=== PATIENT | male | born 1935 | race Caucasian/White ===

== ENCOUNTER 2021-10-26 18:01 | Emergency (ER) | payer OTHER, MEDICARE, SELFPAY ==
[2021-10-26 18:37] VITALS: BP 107/76; PULSE 88; RESP 16; TEMP 36.4; O2SAT 95; BMI 33.7
--- NOTE | 2021-10-26 18:44 | XRR_ITS ---
PROCEDURE INFORMATION: Exam: XR Abdomen Exam date and time: 10/26/2021 7:30 PM Age: 86 years old Clinical indication: Constipation; Additional info: Constipation, no bm for 4 days TECHNIQUE: Imaging protocol: XR of the abdomen. Views: Frontal supine view of the abdomen. 1 View. COMPARISON: No relevant prior studies available. FINDINGS: Gastrointestinal tract: No ileus or obstruction. There is a large amount of stool in the rectum and small to moderate amount of stool in the transverse and proximal descending colon. Bones/joints: No acute abnormality. Severe degenerative changes in the spine and right hip are noted. Other findings: There are multiple hyperdense radiation seeds projected over the prostate gland. XR/XR KUB [id number] IMPRESSION: No bowel obstruction or ileus. There is constipation with a large amount of stool in the rectum. Less extensive stool in the transverse and descending colon.
--- NOTE | 2021-10-27 15:20 | ED_ITS ---
HPI - General Adult General: Chief complaint: General Medical Stated complaint: Constipation Time Seen by Provider: 10/26/21 21:34 Source: patient History of Present Illness: Pt presenting with inability to have a BM for the last 3-4 days. Was seen as outpt and given Mg Citrate which he has taken with minimal results. He has had small amounts of liquid stool only. Mild diffuse belly pain, no vomiting, no fever. States it feels like it is right there but just won't come out. Onset (ago): day(s) Location: abdomen Radiation: non-radiation Severity: mild Quality: aching Pain Consistency: constant Relieving factors: none Exacerbating factors: none Associated symptoms: Reports decreased appetite; Deny chest pain, confusion, cough, fevers/chills, short of breath, vomiting or weakness Review of Systems Card: Denies: chest pain GI: Denies: vomiting Neuro: Denies: confusion PFSH ED PFSH: Social History Smoking and tobacco status: former smoker Physical Exam Const: COMMON NORMALS: no acute distress GENERAL APPEARANCE: cooperative and frail appearing HENMT: COMMON NORMALS: normocephalic HEAD & SCALP: normocephalic FACE & SINUS: normal facial exam and face symmetric Eye: COMMON NORMALS: Equal, round and reactive pupils present and EOMs intact bilaterally PUPIL: Yes Equal, round and reactive pupils present Neck/C-Spine: GENERAL: Yes trachea midline Chest: CHEST: Yes Symmetrical chest wall rise Resp: COMMON NORMALS: normal respiratory effort, No retractions, No use of accessory muscles and clear to auscultation bilaterally AUSCULTATION: clear to auscultation bilaterally Cardio: COMMON NORMALS: regular rate and regular rhythm RATE: regular rate RHYTHM: regular rhythm GI: INSPECTION: Yes abdominal distension PALPATION: Yes Tenderness to palpation present (GI) and No Guarding due to palpation present (GI) Neuro: FREDIS COMA SCALE: document GCS findings Fredis coma scale eye opening: Spontaneous Lolo coma scale verbal response: Orientated Fredis coma scale motor response: Obey commands Lolo coma scale total score: 15 Procedures Rectal Disimpaction Time out performed rectal disimpaction: No Indication: fecal impaction Procedural Sedation: No Sedation/Analgesia: none Technique: manual disimpaction with gloved finger Result: significant stool output Patient Tolerated Procedure: well and no complications Complications: none Course Vital Signs: Vital signs: Vital Signs Temperature 97.6 F 10/26/21 18:37 Pulse Rate 88 10/26/21 18:37 Respiratory Rate 16 10/26/21 18:37 Blood Pressure 107/76 10/26/21 18:37 Pulse Oximetry 95 10/26/21 18:37 MDM - General Adult Medical Decision Making KUB reveals large amount of stool in rectal vault. Disimpacted without complications. Patient passed quite a bit of gas as well. Home with laxative one time dosage. Return for worsening problems. Lab Data Radiology Impressions KUB X-Ray 10/26/21 18:44 IMPRESSION: No bowel obstruction or ileus. There is constipation with a large amount of stool in the rectum. Less extensive stool in the transverse and descending colon. Discharge Plan Discharge Patient Disposition: Home Clinical Impression: Fecal impaction Condition: Stable Prescriptions: No Action magnesium citrate Solution 150 ml PO DAILY 0RF Discharge Orders: Discharge ED (Routine); Ordered 10/26/21 Ordered By: Jayson Matthews Referrals: Mark Maldonado PA [Primary Care Provider] - 1-3 days Discharge Diet: Advance as tolerated Discharge Activity: Increase activity as tolerated Patient Instructions: Fecal Impaction (ED) Activity Restrictions/Additional Instructions: Mixed to 3 substances you were given in the ER together, and take them at once when you get home, or in the morning. Stay close to the bathroom for 12 hours thereafter. Return for worsening belly pain, fever, vomiting, any other concerning symptoms. Coding Level of Care Code ED Financial Aid Coordinator for Juanjose Maldonado
== END 2021-10-26 23:26 | disposition home or self-care (01) ==
PROVIDERS: Emergency Provider Emergency Medicine; PCP Emergency Medicine
DX: K56.41 Fecal impaction (principal)
CPT/HCPCS: 74018; 99283

== ENCOUNTER 2022-01-04 11:04 | Emergency (ER) | payer OTHER, MEDICARE, SELFPAY ==
--- NOTE | 2022-01-04 11:04 | XR_ITS ---
WS: [id number] XR shoulder RT min 2V* [id number] REASON FOR EXAM: fall FINDINGS: There is mild marginal sclerosis and osteophytic spurring of the acromioclavicular joint with adjacen t bony fragments. There is an old healed fracture of the mid and distal most right clavicle. There is significant narrowing of the glenohumeral joint space with significant subchondral sclerosis and osteophytosis of the glenoid and humeral head. Moderate subchondral sclerosis and cystic change in the humeral biceps tuberosity. XR/XR shoulder RT min 2V* [id number] IMPRESSION: No acute abnormality. 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
[2022-01-04 11:11] VITALS: BP 130/64; PULSE 65; RESP 16; TEMP 36.2; O2SAT 93; BMI 37.4
--- NOTE | 2022-01-04 11:58 | W.ED.FALL ---
HPI - Fall General: Chief Complaint: Fall Stated Complaint: FALL R SHOULDER PAIN Time Seen by Provider: 01/04/22 11:17 Source: patient and EMS Mode of arrival: EMS Limitations: no limitations History of Present Illness: 86-year-old male who states that he was walking with his walker got caught up some close on the ground and family states that he did hit his right shoulder on the edge of a couch or his walker. He denies hitting his head denies any head or neck pain he states he has right shoulder pain he rates that pain a 5 out of 10 he is full range of motion he actually use that arm to transfer over to the bed. He is able to ambulate. Associated symptoms-after fall: Denies abdominal pain, chest pain or headache(s) Review of Systems Const: Denies: fever(s), chills, body aches or change in appetite Eyes: Denies: blurry vision or eye discomfort ENMT: Denies: throat pain or dental pain Card: Denies: chest pain Resp: Denies: dyspnea GI: Denies: abdominal pain, nausea, vomiting or diarrhea : Denies: dysuria Musc: Reports: extremity pain Skin/Breast: Denies: rash Neuro: Denies: headache(s) Psych: Denies: depression Bryan/Lymph: Denies: easy bruising All/Imm: Denies: urticaria PFS ED PFSH: Medical History (Updated 01/04/22 @ 12:10 by Jacqueline Sandoval MD) Fall Social History Smoking and tobacco status: former smoker Physical Exam Const: COMMON NORMALS: no acute distress, patient oriented x3 and healthy appearing HENMT: COMMON NORMALS: normocephalic and atraumatic HEAD & SCALP: normocephalic and atraumatic Eye: COMMON NORMALS: Equal, round and reactive pupils present and EOMs intact bilaterally PUPIL: Yes Equal, round and reactive pupils present Neck/C-Spine: COMMON NORMALS: full ROM and supple Chest: COMMONS NORMALS: normal inspection of the chest and normal palpation of entire chest wall Resp: COMMON NORMALS: normal respiratory effort, No retractions, No use of accessory muscles and clear to auscultation bilaterally AUSCULTATION: clear to auscultation bilaterally Cardio: COMMON NORMALS: regular rate, regular rhythm and No murmurs present (Cardio) RATE: regular rate RHYTHM: regular rhythm GI: COMMON NORMALS: Normal to inspection, nondistended, normoactive bowel sounds present, Soft to palpation, non-tender and no masses PALPATION: Yes Soft to palpation Extremity: COMMON NORMALS: full ROM NARRATIVE EXTREMITY EXAM: Slight tenderness over right shoulder he has full range of motion slight pain. Neuro: COMMON NORMALS: patient oriented x3, moves all extremities and no focal motor deficits Psych: COMMON NORMALS: mental status grossly normal, Normal thought process present and cooperative THOUGHT PROCESS: Normal thought process present Skin: COMMON NORMALS: no rashes or lesions noted and no wounds GENERAL SKIN EXAM: no rashes or lesions noted Course Vital Signs: Vital signs: Vital Signs Temperature 97.2 F L 01/04/22 11:11 Pulse Rate 65 01/04/22 11:11 Respiratory Rate 16 01/04/22 11:11 Blood Pressure 130/64 01/04/22 11:11 Pulse Oximetry 93 01/04/22 11:11 MDM - Fall Medical Decision Making Patient presents here with shoulder pain from a fall x-ray here shows no acute abnormality he denies any head or neck injury he stable for discharge he is to follow-up with PCP and return if worsening he understands agrees plan. Lab Data Radiology Impressions Shoulder X-Ray 01/04/22 11:04 IMPRESSION: No acute abnormality. 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 Discharge Plan Discharge Patient Disposition: Home Clinical Impression: Right shoulder strain Fall Qualifiers: Encounter type: initial encounter Qualified Code(s): W19.XXXA - Unspecified fall, initial encounter Condition: Stable Prescriptions: New Naprosyn 500 mg tablet 500 mg PO BID PRN (Reason: pain) Qty: 20 0RF No Action magnesium citrate Solution 150 ml PO DAILY Discharge Orders: Discharge ED (Routine); Ordered 01/04/22 Ordered By: Jacqueline Sandoval Referrals: Mark Maldonado PA [Primary Care Provider] - 1-3 days Discharge Diet: Advance as tolerated Discharge Activity: Resume usual activity Patient Instructions: Shoulder Pain (ED) Coding Level of Care Code ED [facility] Support [facility] Director for Juanjose Maldonado
[2022-01-04] MEDS: HYDROcodone-acetaminophen 5-325 mg Tablet 1 TAB PO (12:07)
== END 2022-01-04 12:20 | disposition home or self-care (01) ==
PROVIDERS: Emergency Provider Emergency Medicine; PCP Emergency Medicine
DX: S46.911A Strain of unspecified muscle, fascia and tendon at shoulder and upper arm level, right arm, initial encounter (principal); Z87.891 Personal history of nicotine dependence; W01.198A Fall on same level from slipping, tripping and stumbling with subsequent striking against other object, initial encounter
CPT/HCPCS: 73030; 99283